=== PATIENT | male | born 1950 | race Caucasian/White ===

== ENCOUNTER 2020-05-15 12:06 | Day surgery (SDC) | payer MEDICARE, OTHER ==
[~2020-05-15] VITALS: Ht 177.8 cm; Wt 94.8 kg
[~2020-05-15 12:06] MED LIST: CALCIUM MAGNES1 EAC2 PO; KLOR-CON M2020 MEQ PO; MULTI VITAMIN1 EACH PO; OMEPRAZOLE20 M1 PO; OMEPRAZOLE40 MG PO; POTASSIUM CHLO20 ME1 PO; PRED FORTE1 ML OPTH; VITAMIN C1000 M2 PO
[2020-05-15] MEDS ORDERED: MAGNESIUM250 M1 PO (12:23)
--- NOTE | 2020-05-15 13:41 | NUR ---
05/15/20 1341 Sheets,Wendy 1337 PT ARRIVED TO PACU ON 3L VIA MASK, RESP EVEN AND UNLABORED. PT DENIES PAIN OR NAUSEA. VSS. PLAN OF CARE DISCUSSED.
--- NOTE | 2020-05-15 16:25 | OR ---
[facility] [address] [place], [place] [address] Signed DATE OF OPERATION: 05/15/2020 SURGEON: Claude Briones MD PREOPERATIVE DIAGNOSIS: Persistent diarrhea. POSTOPERATIVE DIAGNOSIS: Normal-appearing colon and ileum. PROCEDURE: Total colonoscopy to cecum and intubation of ileum with biopsies. ANESTHESIA: Intravenous sedation with fentanyl 150 mcg and Versed 6 mg. INDICATION: This 69-year-old white man is a patient of RONY Tejada, and known to me from the past. He has had persistent diarrhea without associated bleeding. His last colonoscopy was in 2013, which showed no adverse findings. Various stool tests have all been "negative." By diarrhea, he means loose and unformed stool. He has had no antibiotic therapy to account for diarrhea problem and no family history of colon cancer or inflammatory bowel disease. He is admitted at this time to undergo colonoscopy. He understands the risks of bleeding, infection, and perforation. FINDINGS: The prep was excellent. Complete colonoscopy was undertaken to the cecum without problem. Intubation of the ileum was accomplished as well. Biopsies were obtained of the ileum, cecum, left colon, transverse colon, and rectum. PROCEDURE IN DETAIL: The patient was brought to the endoscopy suite and placed in lateral decubitus position. Given intravenous sedation to the point of slurred speech and nystagmus. Digital rectal examination was normal. An Olympus video colonoscope was passed in the rectum and manipulated throughout the colon ultimately intubating the cecum. With a bit of manipulation, the ileum was entered and the terminal ileum mucosa appeared normal. Scope was passed several centimeters into it, confirming this. Biopsies were taken of the ileum nevertheless. The scope was withdrawn and biopsies taken of the cecum. The scope was withdrawn and Electronically Signed By: CLAUDE BRIONES MD 05/15/20 1625 PATIENT NAME: KIANA CARNEY OPERATIVE REPORT DATE OF : 50 REPORT #: [id number] PHYSICIAN: CLAUDE BRIONES MD PCP: MARK LAN PA-C REPORT IS CONFIDENTIAL AND NOT TO BE RELEASED WITHOUT AUTHORIZATION [facility] [address] [place], [place] [address] Signed examination throughout showed no sign of abnormality. Additional biopsies were taken of the transverse colon, left colon, and rectum. Retroflexed view was normal. Scope was removed and the patient taken to the recovery room in good condition. CONCLUDING DIAGNOSIS: No etiology to his diarrhea based on colonic evaluation. Stool studies have been completed in the past, which were negative. At this point, we will assess pathology reports to assess for occult colitis such as collagenous colitis or lymphocytic colitis. In the meantime, we will prescribe empirically Flagyl 250 mg p.o. t.i.d. for 10 days. We will see him back in the office in a few weeks and review his progress and his pathology reports. MD JANESSA Grove/NOHEMI /[id number] cc: RONY Tejada Copies: ~ Electronically Signed By: CLAUDE BRIONES MD 05/15/20 1625 PATIENT NAME: KIANA CARNEY MARINO OPERATIVE REPORT DATE OF : 50 REPORT #: [id number] PHYSICIAN: CLAUDE BRIONES MD PCP: MARK LAN PA-C REPORT IS CONFIDENTIAL AND NOT TO BE RELEASED WITHOUT AUTHORIZATION
--- NOTE | 2020-05-16 13:09 | PATH ---
[facility] [address] [place], [place] [address] Signed SPECIMEN(S): A CECUM SPECIMEN(S): B TERMINAL ILEUM SPECIMEN(S): C TRANSVERSE SPECIMEN(S): D RECTUM SPECIMEN SOURCE: A. CECUM B. TERMINAL ILEUM C. TRANSVERSE D. RECTUM CLINICAL HISTORY: Colonoscopy; diarrhea. MICROSCOPIC DESCRIPTION: Histologic sections of all submitted blocks are examined by light microscopy. These findings, together with the gross examination, support the pathologic diagnosis. FINAL PATHOLOGIC DIAGNOSIS: A. Colon, cecum, biopsy: - Colonic mucosa with increased intraepithelial lymphocytes and focal mild active inflammation. - Negative for dysplasia or malignancy. - See Comment. B. Terminal ileum, biopsy: - Ileal mucosa with no histopathologic abnormality. - Negative for active inflammation or granulomata. - Negative for dysplasia or malignancy. C. Colon, transverse, biopsy: - Colonic mucosa with mild increased intraepithelial lymphocytes. - Negative for dysplasia or malignancy. - See Comment. D. Rectum, biopsy: - Colorectal mucosa with mild increased intraepithelial lymphocytes. - Negative for dysplasia or malignancy. - See Comment. COMMENT: Sections of the colonic and rectal biopsies (A, C, D) are similar and demonstrate colonic mucosa with increased intraepithelial lymphocytes, surface epithelial injury, and focal active inflammation. PATIENT NAME: KIANA CARNEY PATHOLOGY DATE OF : 50 REPORT #: [id number] PHYSICIAN: JANET PATHOLOGY PCP: MARK LAN PA-C REPORT IS CONFIDENTIAL AND NOT TO BE RELEASED WITHOUT AUTHORIZATION [facility] [address] [facility] [place], [place] [address] Signed The lamina propria has a mild to moderate mixed inflammatory cell infiltrate including eosinophils. There is no subepithelial collagen band thickening, ulcerations, or crypt architectural distortion. The degree of inflammation is most prominent in the cecum and decreases distally. The features are compatible with lymphocytic colitis. Correlation with clinical findings is recommended. NAL:cml:C2NR GROSS DESCRIPTION: Four specimens are received in four containers, labeled "MD." A. The specimen, labeled "MD, cecum biopsy," is received in formalin and consists of two ochoa soft tissue fragment that measure 0.2 cm in greatest dimension. The specimen is entirely submitted in cassette (A1). B. The specimen, labeled "MD, terminal ileum biopsy," is received in formalin and consists of two ochoa soft tissue fragments that measure 0.2-0.3 cm in greatest dimension. The specimen is entirely submitted in cassette (B1). C. The specimen, labeled "MD, transverse colon polyp," is received in formalin and consists of one ochoa soft tissue fragment that measures 0.2 cm in greatest dimension. The specimen is entirely submitted in cassette (C1). D. The specimen, labeled "MD, rectum biopsy," is received in formalin and consists of three ochoa soft tissue fragments that measure 0.1-0.2 cm in greatest dimension. The specimen is entirely submitted in cassette (D1). JS (under the direct supervision of a pathologist) The Gross Description was prepared using a voice recognition system. The report was reviewed for accuracy; however, sound-alike word errors, addition and/or deletions may occur. If there is any question about this report, please contact Client Services. PERFORMING LABORATORY: The technical component was performed by [facility], [address] [place] [address] (Dry End Operator: Destiny Buckner MD; CLIA# [id number]). [facility], [address] [place], [place] [address] (CLIA# [id number]). Diagnostician: Destiny Farrar MD Pathologist PATIENT NAME: KIANA CARNEY PATHOLOGY DATE OF : 50 REPORT #: [id number] PHYSICIAN: JANET PATHOLOGY PCP: MARK LAN PA-C REPORT IS CONFIDENTIAL AND NOT TO BE RELEASED WITHOUT AUTHORIZATION [facility] [address] [facility] [place], [place] [address] Signed Electronically Signed 05/16/2020 Copies: ~ PATIENT NAME: KIANA CARNEY PATHOLOGY DATE OF : 50 REPORT #: [id number] PHYSICIAN: JANET PATHOLOGY PCP: MARK LAN PA-C REPORT IS CONFIDENTIAL AND NOT TO BE RELEASED WITHOUT AUTHORIZATION
== END 2020-05-15 14:18 | disposition home or self-care (01) ==
LOC: OPS 12:06 → DS 12:10 → OPS 13:00 → DS 13:00 → OPS 14:18
PROVIDERS: ATTEND Surgery
PROC: 0DBL8ZX Excision of Transverse Colon, Via Natural or Artificial Opening Endoscopic, Diagnostic (ICD-10-PCS; 2020-05-15)
PROC: 0DBP8ZX Excision of Rectum, Via Natural or Artificial Opening Endoscopic, Diagnostic (ICD-10-PCS; 2020-05-15)
PROC: 0DBG8ZX Excision of Left Large Intestine, Via Natural or Artificial Opening Endoscopic, Diagnostic (ICD-10-PCS; 2020-05-15)
PROC: 0DBB8ZX Excision of Ileum, Via Natural or Artificial Opening Endoscopic, Diagnostic (ICD-10-PCS; 2020-05-15)
PROC: 0DBH8ZX Excision of Cecum, Via Natural or Artificial Opening Endoscopic, Diagnostic (ICD-10-PCS; principal; 2020-05-15 13:00)
DX: K52.89 Other specified noninfective gastroenteritis and colitis (principal); Z79.899 Other long term (current) drug therapy
CPT/HCPCS: 99153; G0500; J2250; J3010; J7121

== ENCOUNTER 2023-08-19 13:00 | Day surgery (SDC) | payer MEDICARE, OTHER ==
[~2023-08-19] VITALS: Ht 177.8 cm; Wt 90.0 kg
[~2023-08-19 13:00] MED LIST changes: +BENZONATATE100 MG PO; +BUDESONIDE EC3 M1 PO; +DORZOLAMIDE-TIM10 ML OS; +IBLOOD GLUCOSE TEST STRIP 1 EA TEST VI PRN; +LACTATED RINGER'S 1,000 ML IV SCH; +LIDOCAINE HCL 1% 5 ML SDV INJ ONE; +MAGNESIUM250 M1 PO; +MIDAZOLAM HCL 5 MG/5 ML VIAL IV PRN; +VENTOLIN HFA18 GM INH; +fentaNYL citrate 100 MCG/2 ML VIAL IV PRN
[2023-08-19 13:20] VITALS: BP 135/89
[2023-08-19] MEDS ORDERED: MIDAZOLAM HCL 5 MG/5 ML VIAL ONE (13:49)
[2023-08-19] MEDS ORDERED: fentaNYL citrate 100 MCG/2 ML VIAL ONE (13:49)
--- NOTE | 2023-08-19 14:25 | NUR ---
08/19/23 1425 Juany Hodges 1421-PATIENT ARRIVED TO PACU ON 2L NC RR EVEN. PATIENT LAYING LEFT LATERAL ABDOMEN SOFT. PATIENT AROUSES TO VERBAL STIMULI REMAINS VERY DROWSY DOZES BACK TO SLEEP. ABDOMEN ROUND. IVF INFUSING.
[2023-08-19 15:01] VITALS: BP 129/89
--- NOTE | 2023-08-20 13:37 | OR ---
[facility] [address] [place], [place] [address] Signed DATE OF OPERATION: 08/19/2023 SURGEON: Claude Briones MD PREOPERATIVE DIAGNOSES: 1. Known history of lymphocytic colitis (diagnosed in April 2020). 2. Good symptom control, currently on budesonide. POSTOPERATIVE DIAGNOSIS: Mild sigmoid and rectal edema uncertain regarding extent of lymphocytic colitis. PROCEDURE: Total colonoscopy to cecum with biopsies. ANESTHESIA: Intravenous sedation, fentanyl 100 mcg and Versed 7 mg. INDICATIONS: This 73-year-old white man is a patient of RONY Tejada. He underwent colonoscopy for a diarrhea problem in April of 2020, where he was diagnosed with lymphocytic colitis. He has been treated with budesonide. He has had treatment between 3 and 9 mg daily of budesonide for symptom control. Currently, he is symptom free while on budesonide of the dose that I am uncertain of at this moment. He is admitted to undergo colonoscopy to assess disease activity as he has had increasing symptoms in late fall and early winter. The risk of bleeding, infection, and perforation related to colonoscopy were reviewed with him. He understands and wished to proceed. FINDINGS: There is no overt colitis; this of course is typical of lymphocytic colitis. He had no polyps or other abnormality. There was mild edema of the rectum and sigmoid and to a smaller degree the left colon. He tolerated the procedure well. DESCRIPTION OF PROCEDURE: The patient was brought to the endoscopy suite and placed in lateral decubitus position given intravenous sedation to the point of slurred speech and nystagmus with full cardiopulmonary monitoring. Digital rectal examination was normal. An Olympus video colonoscope was passed into the rectum and manipulated throughout the colon, ultimately intubating the cecum. The ileocecal valve and appendiceal orifice were normal. Scope was withdrawn from that point and biopsies taken of the cecum and Electronically Signed By: CLAUDE BRIONES MD 08/20/23 1337 PATIENT NAME: KIANA CARNEY OPERATIVE REPORT DATE OF : 50 REPORT #: [id number] PHYSICIAN: CLAUDE BRIONES MD PCP: MARK LAN PA-C REPORT IS CONFIDENTIAL AND NOT TO BE RELEASED WITHOUT AUTHORIZATION [facility] [address] [place], [place] [address], [place] [address] Signed right colon. Biopsies were additionally taken of the transverse colon, subsequently sigmoid and rectum. Retroflexed view was normal. There appeared to be some edema and blurring of blood vessels in the mucosa of the left colon, sigmoid consistent with low-grade probably occult colitis consistent with lymphocytic colitis. The scope was removed and the patient was taken to the recovery room in good condition. CONCLUDING DIAGNOSIS: May still have residual of his lymphocytic colitis, currently symptom free. PLAN: We will review his current dosing of budesonide and see the patient back in 4-6 weeks to review his pathology report and further management. MD JANESSA Grove/NOHEMI /[id number] Copies: ~ Electronically Signed By: CLAUDE BRIONES MD 08/20/23 1337 PATIENT NAME: BEN CARNEYBLUE PICHARDO OPERATIVE REPORT DATE OF : 50 REPORT #: [id number] PHYSICIAN: CLAUDE BRIONES MD PCP: MARK LAN PA-C REPORT IS CONFIDENTIAL AND NOT TO BE RELEASED WITHOUT AUTHORIZATION
--- NOTE | 2023-08-20 16:20 | PATH ---
[facility] [address] [place], [place] [address] Signed SPECIMEN(S): A CECUM COLON BIOPSY SPECIMEN(S): B RIGHT COLON BIOPSY SPECIMEN(S): C SIGMOID COLON BIOPSY SPECIMEN(S): D RECTUM BIOPSY SPECIMEN SOURCE: A. CECUM COLON BIOPSY B. RIGHT COLON BIOPSY C. SIGMOID COLON BIOPSY D. RECTUM BIOPSY CLINICAL HISTORY: History of lymphocytic colitis, diarrhea. Post-op dx: Minimal colitis. FINAL PATHOLOGIC DIAGNOSIS: A. Cecum, biopsy: - Colonic mucosa with no significant pathologic changes B. Colon, right, biopsy: - Colonic mucosa with no significant pathologic changes C. Colon, sigmoid, biopsy: - Colonic mucosa with no significant pathologic changes D. Rectum, biopsy: - Colonic mucosa with no significant pathologic changes BRP MICROSCOPIC EXAMINATION: Histologic sections of all submitted blocks are examined by light microscopy. These findings, together with the gross examination, support the pathologic diagnosis. GROSS DESCRIPTION: A. The specimen, labeled and designated "D[place]k, cecum colon biopsy," is received in formalin and consists of three ochoa soft tissue fragments, ranging from 0.2-0.3 cm. Entirely submitted in (A1). B. The specimen, labeled and designated "[place], right colon biopsy," is received in formalin and consists of three ochoa soft tissue fragments, ranging from 0.2-0.4 cm. Entirely submitted in (B1). C. The specimen, labeled and designated "[place], sigmoid colon biopsy," is received in formalin and consists of six ochoa soft tissue fragments, ranging from 0.3-1.0 cm. Entirely submitted in (C1). D. The specimen, labeled and designated "[place], rectum biopsy," is received in PATIENT NAME: KIANA CARNEY PATHOLOGY DATE OF : 50 REPORT #: [id number] PHYSICIAN: JANET PATHOLOGY PCP: MARK LAN PA-C REPORT IS CONFIDENTIAL AND NOT TO BE RELEASED WITHOUT AUTHORIZATION [facility] [address] [place], [place] [address] Signed formalin and consists of four ochoa soft tissue fragments, ranging from 0.1-0.4 cm. Entirely submitted in (D1). VB (under the direct supervision of a pathologist) The Gross Description was prepared using a voice recognition system. The report was reviewed for accuracy; however, sound-alike word errors, addition and/or deletions may occur. If there is any question about this report, please contact Client Services. ADDITIONAL NOTES: Immunohistochemical and/or in situ hybridization studies if performed in this case included appropriate positive controls that reacted as expected. This test was developed and its performance characteristics determined by [facility]. It has not been cleared or approved by the U.S. Food and Drug Administration. The FDA has determined that such clearance or approval is not necessary. This test is used for clinical purposes. It should not be regarded as investigational or for research. [facility] is certified under the Clinical Laboratory Improvement Amendments of 1988 (CLIA) as qualified to perform high complexity clinical laboratory testing. PERFORMING LABORATORY: Technical component was performed by [facility], [address] [place] [id number] (CLIA# [id number]). Professional interpretation was performed by [facility] [address] [place] [id number] Diagnostician: Hardeep Kumar MD Pathologist Electronically Signed 08/20/2023 Copies: ~ PATIENT NAME: KIANA CARNEY MARINO PATHOLOGY DATE OF : 50 REPORT #: [id number] PHYSICIAN: JANET PATHOLOGY PCP: MARK LAN PA-C REPORT IS CONFIDENTIAL AND NOT TO BE RELEASED WITHOUT AUTHORIZATION
== END 2023-08-19 15:10 | disposition home or self-care (01) ==
LOC: DS 13:00 → OPS 13:00 → DS 13:45 → OPS 13:45
PROVIDERS: ATTEND Surgery
PROC: 0DBH8ZX Excision of Cecum, Via Natural or Artificial Opening Endoscopic, Diagnostic (ICD-10-PCS; 2023-08-19)
PROC: 0DBK8ZX Excision of Ascending Colon, Via Natural or Artificial Opening Endoscopic, Diagnostic (ICD-10-PCS; principal; 2023-08-19 13:45)
DX: K52.832 Lymphocytic colitis (principal)
CPT/HCPCS: 88305; 99153; G0500; J2250; J3010; J7121

== ENCOUNTER 2025-05-30 08:20 | Day surgery (SDC) | payer MEDICARE, OTHER ==
[~2025-05-30] VITALS: Ht 177.8 cm; Wt 94.0 kg
[~2025-05-30 08:20] MED LIST changes: +BETIMOL5 M2 OP; +BRIMONIDINE TART5 ML OPTH; +CEFAZOLIN SODIUM 2 GM in SODIUM CHLORIDE 0.9% 100 ML IV SCH; +DORZOLAMIDE HCL10 ML OD; +DULOXETINE HCL 30 MG CAP PO ONE; +DULOXETINE HCL30 MG PO; +INTRA-ARTICULAR ANALGESIC INJECTION XX SCH; -MIDAZOLAM HCL 5 MG/5 ML VIAL IV PRN; +OXYCODONE HCL 5 MG TAB PO SCH; +PANTOPRAZOLE SODIUM 40 MG TABEC PO SCH; +PREDNISOLONE ACE5 ML OPTH; +ROPIVACAINE IN 0.9% SOD CHL/PF 545 ML ELS.PMP.HR IRRIGATION SCH; +Ropivacaine HCl 20 MG/10 ML AMP ONE; +TAMSULOSIN HCL0.4 MG PO; +TRANEXAMIC ACID IN NACL,ISO-OS 1,000 MG/100 ML PIGGYBACK IV SCH; -fentaNYL citrate 100 MCG/2 ML VIAL IV PRN
[2025-05-30 08:50] VITALS: BP 121/84
[2025-05-30] MEDS ORDERED: Ropivacaine HCl 0.5% 30 ML VIAL ONE (09:35)
[2025-05-30] MEDS ORDERED: LIDOCAINE HCL 2% 5 ML SDV ONE ×2 (09:35→10:34)
[2025-05-30] MEDS ORDERED: SODIUM CHLORIDE 0.9% 40 ML IV ONE (09:35)
[2025-05-30] MEDS ORDERED: DEXAMETHASONE SOD PHOS 4 MG/ML VIAL ONE ×2 (09:36→10:34)
[2025-05-30] MEDS ORDERED: KETOROLAC TROMETHAMINE 15 MG/ML VIAL IV PRN (10:15)
[2025-05-30] MEDS ORDERED: OXYCODONE HCL 5 MG TAB PO PRN (10:15)
[2025-05-30] MEDS ORDERED: PHENYLEPHRINE HCL IN 0.9% NACL 1 MG/10 ML SYR ONE (11:37)
[2025-05-30] MEDS ORDERED: IBLOOD GLUCOSE TEST STRIP 1 EA TEST VI PRN (11:45)
[2025-05-30] MEDS ORDERED: NALOXONE HCL 0.4 MG SYR IV PRN (11:45)
[2025-05-30] MEDS ORDERED: fentaNYL citrate 50 MCG/ML SDV IV PRN (11:45)
[2025-05-30] MEDS ORDERED: DICLOFENAC SODI75 MG PO (11:57)
[2025-05-30] MEDS ORDERED: CEFUROXIME250 MG PO (11:57)
[2025-05-30] MEDS ORDERED: ACETAMINOPHEN500 MG PO (11:57)
[2025-05-30] MEDS ORDERED: ASPIRIN325 MG PO (11:57)
[2025-05-30] MEDS ORDERED: OXYCODONE HCL5 M1 PO (11:57)
[2025-05-30] MEDS ORDERED: SENNA LAX8.6 MG PO (11:58)
[2025-05-30] MEDS ORDERED: ONDANSETRON ODT8 MG PO (12:01)
[2025-05-30] MEDS ORDERED: TRANEXAMIC ACI650 MG PO (12:01)
--- NOTE | 2025-05-30 12:17 | NUR ---
05/30/25 1217 Parul Harris LE 1205: PT ARRIVES TO PACU AWAKE AND ALERT. NO COMPLAINTS OF PAIN. REPORT RECEIVED FROM SOCIAL AND POLITICAL STUDIES PROFESSOR AND RAIL WASHER. LE 1213: PT IS GIVEN ICE WATER, TAKING SMALL SIPS. LE 1215: X-RAY AT THE BEDSIDE FOR IMAGING.
[2025-05-30 12:41] VITALS: BP 127/69
--- NOTE | 2025-05-30 12:46 | NUR ---
1235- PT ARRIVES FROM PACU. BEDSIDE REPORT RECEIVED FROM ESTELLA GAMBOA. SURGICAL SITE ASSESSED. LR INFUSING. PT DENIES PAIN OR NAUSEA. PT IS SIPPING ON WATER. VSS. CALL LIGHT IN REACH. BED IS LOCKED IN THE LOWEST POSITION. DISCHARGE CRITERIA DISCUSSED AND PT IS UNDERSTANDING. CRYO-CUFF IN PLACE.
[2025-05-30] MEDS ORDERED: TRANEXAMIC ACID IN NACL,ISO-OS 1,000 MG/100 ML PIGGYBACK IV SCH (13:00)
[2025-05-30 13:51] VITALS: BP 124/67
--- NOTE | 2025-05-30 13:53 | NUR ---
1440- PT RESTING IN STRETCHER. PT REPORTS HE CAN NOW FEEL THE COLD FROM THE CRYO CUFF AND THE SQUEEZING FROM THE SCD BOOTS. PT DENIES NAUSEA. PT REPORTS PAIN IS A 4/10 AND REQUESTING "TYLENOL OR IBUPROPHEN OR SOMETHING". WATER REFILLED PER PT REQUEST. SURGICAL SITE ASSESSED. LR INFUSING. PAIN MEDICATION AND TXA STARTED, SEE EMAR. VSS. CALL LIGHT IN REACH. BED IS LOCKED IN THE LOWEST POSITION.
--- NOTE | 2025-05-30 14:43 | NUR ---
1440- PHYSICAL THERAPY IS IN WORKING WITH PT AFTER RN CHECKED SPINAL. LR DISCONECTED AND SCD BOOTS REMOVED.
[2025-05-30] MEDS ORDERED: ACETAMINOPHEN 500 MG TAB PO SCH (15:00)
[2025-05-30 15:50] VITALS: BP 144/84
--- NOTE | 2025-05-30 15:53 | NUR ---
1540- PT IS BACK FROM WORKING WITH PHSCIAL THERAPY. PT PASSED PHYSICAL THERAPY. PT GETTING DRESSED WITH ASSISTANCE. PT REPORTS PAIN IS A 1/10 AND DENIES NAUSEA. ALL QUESTIONS AND CONCERNS ANSWERED. VSS. SURGICAL SITE ASSESSED. DR. GUILLEN CALLED AND VERBAL ORDER RECIEVED TO DC PATIENT AFTER ANTIBIOTIC IS GIVEN. BED IS LOCKED IN THE LOWEST POSITION AND CALL LIGHT IN REACH. CRYO CUFF IN PLACE. PT IS SALINE LOCKED.
--- NOTE | 2025-05-30 16:54 | NUR ---
1645- IV REMOVED. DISCHARGE INFORMATION GONE OVER AND ALL QUESTIONS AND CONCERNS ANSWERED WITH DAUGHTER AT THE BEDSIDE. ALL EDUCATION GIVEN. ANCEF IS COMPLETE. PT IS ABLE TO AMBULATE USING FRONT WHEELED WALKER TO HOSPITAL WHEELCHAIR WITH NO ISSUES. PT DENIES NAUSEA AND REPORTS 1/10 PAIN. PT IS DC'D FROM DAY SURGERY AT THIS TIME WITH ALL BELONGINGS.
[2025-05-30] MEDS ORDERED: CEFAZOLIN SODIUM 2 GM in SODIUM CHLORIDE 0.9% 100 ML IV SCH ×2 (17:00→19:00)
[2025-05-30] MEDS ORDERED: SENNOSIDES 1 TAB PO SCH (21:00)
[2025-05-30] MEDS ORDERED: TAMSULOSIN HCL 0.4 MG CAP PO SCH (21:00)
[2025-05-31] MEDS ORDERED: DICLOFENAC SOD 75 MG TABEC PO SCH (08:00)
[2025-05-31] MEDS ORDERED: ASPIRIN 325 MG TAB PO SCH (08:00)
[2025-05-31] MEDS ORDERED: DULOXETINE HCL 30 MG CAP PO SCH (09:00)
--- NOTE | 2025-06-02 16:16 | OR ---
[facility] [address] [place], [place] [address] Signed DATE OF OPERATION: 05/30/2025 SURGEON: Chuy Hines MD PREOPERATIVE DIAGNOSIS: Severe degenerative joint disease, left knee. POSTOPERATIVE DIAGNOSIS: Severe degenerative joint disease, left knee. PROCEDURE PERFORMED: Left total knee arthroplasty with Harish. JUNIOR BRAND MANAGER: Jacque Love PA-C. Jacque was present and critical for all portions of procedure. ANESTHESIA: Spinal. BLOOD LOSS: 175 mL. IMPLANTS: Jabier Triathlon size 6, 10 mm polyethylene and 38 mm patella. BRIEF HISTORY: Chong is a 74-year-old gentleman with progressive worsening of medial arthritis. Nonoperative treatment was unsuccessful and he wished to proceed with total knee. Risks and benefits were discussed. He understood, wished to proceed. DESCRIPTION OF PROCEDURE: Once consent was obtained, he was taken to the operating room. After adequate anesthesia, he was placed on the OR table with a hip bump. The left leg was prepped and draped in a standard sterile fashion. The knee was approached through standard anterior midline incision, carried through skin and subcutaneous tissue. Skin flaps were developed medially and laterally. A subvastus arthrotomy was then performed and the infrapatellar fat pad was excised. The MCL was elevated as a sleeve around the posteromedial corner. The anterior horns of the menisci were transected as we went. The ACL was transected. PCL was found to be intact. The computer arrays were then Electronically Signed By: CHUY HINES MD 06/02/25 1616 PATIENT NAME: CHONG CARNEY OPERATIVE REPORT DATE OF : 50 REPORT #: [id number] PHYSICIAN: CHUY HINES MD PCP: MARK LAN PA-C REPORT IS CONFIDENTIAL AND NOT TO BE RELEASED WITHOUT AUTHORIZATION [facility] [address] [place], [place] [address] Signed placed in the distal femur and proximal tibia. The leg was registered with the computer followed by the fine anatomic points of the knee. The varus valgus posing was undertaken and slight adjustments were made to the position of the prosthesis. The robot was then brought in. The four straight cut and two angle cuts were made with care taken to protect the patellar tendon and MCL. The bony remnants were removed as were any remaining osteophytes. Posterior osteophytes removed off the femur, but no release was performed. The trials were then positioned. Knee was taken from 0-130 degrees with good stability and good patellar tracking. The patella was then cut, sized, and drilled for a 38 mm patella. The distal femoral drill holes were completed. The proximal tibial drill holes were completed and the keel punch was completed. The prosthesis was then obtained. The tibia was impacted into position. The patella was seated flush. The polyethylene was snapped into position and the femur was impacted until it was fully seated. The patella was then clamped into position again until it was fully seated. The range of motion was checked. The patella tracked well and was stable. The wound was then copiously irrigated with Surgiphor followed by normal saline. The periarticular soft tissues were injected with 80 mL ropivacaine Toradol mixture. The On-Q pain pump was percutaneously placed into the adductor canal from the suprapatellar pouch. The arthrotomy was then closed using a combination of #2 FiberWire and #2 Stratafix. Subcutaneous tissue was closed with 0 Stratafix and the skin with 3-0 Stratafix. The incision was then sealed with LiquiBand and Acticoat-7 dressing was applied. ABD and Rony wrap were also applied. He was awakened, taken to the recovery room in satisfactory condition. All sponge, needle, and instrument counts were correct. Chuy Hines MD BA/MODL /[id number] Copies: ~ Electronically Signed By: CHUY HINES MD 06/02/25 1616 PATIENT NAME: CHONG CARNEY OPERATIVE REPORT DATE OF : 50 REPORT #: [id number] PHYSICIAN: CHUY HINES MD PCP: MARK LAN PA-C REPORT IS CONFIDENTIAL AND NOT TO BE RELEASED WITHOUT AUTHORIZATION
== END 2025-05-30 16:45 ==
LOC: DS 08:20
PROVIDERS: ATTEND Specialist
PROC: 0SRD0JA Replacement of Left Knee Joint with Synthetic Substitute, Uncemented, Open Approach (ICD-10-PCS; principal; 2025-05-30 12:30)
DX: M17.12 Unilateral primary osteoarthritis, left knee (principal); G89.18 Other acute postprocedural pain; Z79.899 Other long term (current) drug therapy; Z87.891 Personal history of nicotine dependence
CPT/HCPCS: 0055T; 27447; 01402; 64447; 64454; 64473; 73560; 97116; 97161; 97530; A9270; C1713; C1776; J0165; J0688; J1100; J2003; J2704; J2795; J7999